=== PATIENT | male | born 1980 | race African-American/Black ===

== ENCOUNTER 2017-01-29 04:12 | Emergency (ER) | payer MEDICAID ==
[~2017-01-29] VITALS: Ht 175.3 cm; Wt 77.0 kg
[~2017-01-29 04:12] MED LIST: PHEN100C4 PO
[2017-01-29 06:00] VITALS: BP 118/70
== END 2017-01-29 06:00 | disposition home or self-care (01) ==
LOC: ER 04:15
DX: R56.9 Unspecified convulsions (principal); Z79.899 Other long term (current) drug therapy
CPT/HCPCS: 36415; 80185; 99284; Z7610

== ENCOUNTER 2017-05-18 13:42 | Emergency (ER) | payer MEDICAID ==
[~2017-05-18] VITALS: Ht 170.2 cm; Wt 70.0 kg
[2017-05-18] MEDS ORDERED: BACITRACIN ZINC OINT UDPKT TOP ONE (14:45)
[2017-05-18 14:59] LABS: BASOPHILS % 0.9 % (0.0-2.0); EOSINOPHILS % 3.8 % (0.0-5.0); HEMATOCRIT. 41.9 % (42.0-52.0); HEMOGLOBIN. 13.4 g/dL (14.0-18.0); LYMPHOCYTES % 29.5 % (20.0-50.0); MEAN CORPUSCULAR HEMOGLOBIN 26.8 pg (28.0-32.0); MEAN CORPUSCULAR VOLUME 83.6 fL (80.0-94.0); MEAN PLATELET VOLUME 7.3 fl (7.4-10.4); MONOCYTES % 9.9 % (2.0-8.0); NEUTROPHILS % 55.9 % (40.0-76.0); PLATELET 294 x1000/uL (130-400); RED BLOOD CELL COUNT 5.01 mill/uL (4.7-6.1); RED CELL DISTRIBUTION WIDTH 15.3 % (11.6-14.6)
[2017-05-18 15:15] LABS: CARBON DIOXIDE 25 mEq/L (21-32); CHLORIDE 107 mEq/L (98-107)
[2017-05-18 16:04] VITALS: BP 144/78
== END 2017-05-18 16:05 | disposition left against medical advice (07) ==
LOC: ER 14:21
DX: G40.909 Epilepsy, unspecified, not intractable, without status epilepticus (principal); S01.512A Laceration without foreign body of oral cavity, initial encounter; S80.211A Abrasion, right knee, initial encounter; S60.512A Abrasion of left hand, initial encounter; R79.89 Other specified abnormal findings of blood chemistry; R03.0 Elevated blood-pressure reading, without diagnosis of hypertension; W01.0XXA Fall on same level from slipping, tripping and stumbling without subsequent striking against object, initial encounter; Y93.89 Activity, other specified; Y92.89 Other specified places as the place of occurrence of the external cause
CPT/HCPCS: 36415; 80053; 80185; 85025; 99284; Z7610

== ENCOUNTER 2017-05-20 22:50 | Emergency (ER) | payer MEDICAID ==
[~2017-05-20] VITALS: Ht 172.7 cm; Wt 60.0 kg
[2017-05-21 00:54] VITALS: BP 117/69
== END 2017-05-21 02:45 | disposition left against medical advice (07) ==
LOC: ER 22:50
DX: R42 Dizziness and giddiness (principal); Z53.21 Procedure and treatment not carried out due to patient leaving prior to being seen by health care provider

== ENCOUNTER 2019-03-13 22:54 | Emergency (ER) | payer MEDICAID | END 2019-03-14 | disposition left against medical advice (07) | LOC: ER 22:54 | DX: Z53.21 Procedure and treatment not carried out due to patient leaving prior to being seen by health care provider (principal) ==

== ENCOUNTER 2024-04-03 19:53 | Emergency (ER) | payer MEDICAID, OTHER ==
[~2024-04-03] VITALS: Ht 172.7 cm; Wt 73.0 kg
[~2024-04-03 19:53] MED LIST changes: +ASPI-1160 PO; +KEPP500 MT
[2024-04-03 19:58] VITALS: TEMP 98.2; O2SAT 98
[2024-04-03] MEDS ORDERED: NAPR-1176 MT (23:05)
[2024-04-03] MEDS ORDERED: LIDO700A15 TP (23:05)
[2024-04-03] MEDS: KETOROLAC 15MG/ML VIAL IM ONE (23:18)
[2024-04-03 23:24] VITALS: BP 120/72; PULSE 90; RESP 16
[2024-04-03] MEDS: KETOROLAC 15MG/ML VIAL IM NR (23:24)
== END 2024-04-03 23:35 | disposition home or self-care (01) ==
LOC: ER 20:03
DX: G89.29 Other chronic pain (principal); M54.9 Dorsalgia, unspecified; F12.10 Cannabis abuse, uncomplicated; Z79.899 Other long term (current) drug therapy
CPT/HCPCS: 99283; 72100; 96372; J1885

== ENCOUNTER 2024-04-09 14:54 | Emergency (ER) | payer MEDICAID ==
[~2024-04-09] VITALS: Ht 175.3 cm; Wt 70.0 kg
[~2024-04-09 14:54] MED LIST changes: +LIDO700A15 TP; +NAPR-1176 MT
[2024-04-09 14:56] VITALS: BP 152/90; PULSE 105; RESP 16; TEMP 98.7; O2SAT 100
[2024-04-09 15:52] LABS: BASOPHILS % 0.2 % (0.0-2.0); EOSINOPHILS % 1.9 % (0.0-5.0); HEMATOCRIT. 37.9 % (42.0-52.0); HEMOGLOBIN. 12.6 g/dL (14.0-18.0); MEAN CORPUSCULAR HEMOGLOBIN 27.7 pg (28.0-32.0); MEAN CORPUSCULAR HGB CONC 33.4 g/dL (31.0-37.0); MEAN CORPUSCULAR VOLUME 82.9 fL (80.0-94.0); MEAN PLATELET VOLUME 6.4 fl (7.4-10.4); MONOCYTES % 8.4 % (2.0-8.0); NEUTROPHILS % 74.5 % (40.0-76.0); PLATELET 380 x1000/uL (130-400); RED BLOOD CELL COUNT 4.57 mill/uL (4.7-6.1)
[2024-04-09 15:56] LABS: CHLORIDE 109 mEq/L (98-107); POTASSIUM 4.2 mEq/L (3.5-5.1); SODIUM 140 mEq/L (136-145)
[2024-04-09 15:57] LABS: CALCIUM 8.9 mg/dL (8.7-10.4); CARBON DIOXIDE 26 mEq/L (21-32)
[2024-04-09 16:02] LABS: CREATININE 0.9 mg/dL (0.6-1.3); GLUCOSE 106 mg/dL (70-105); UREA NITROGEN BLOOD 11 mg/dL (9-23)
[2024-04-09 16:03] LABS: PHENYTOIN 7.9 ug/mL (10-20)
[2024-04-09 16:11] LABS: ETHANOL BLOOD < 10 mg/dL (<10)
[2024-04-09] MEDS: PHENYTOIN SODIUM EXTENDED 100MG CAPSULE PO ONE (16:14)
[2024-04-09] MEDS ORDERED: PHENYTOIN SODIUM EXTENDED 100MG CAPSULE PO ONE ×2 (17:15→19:00)
[2024-04-09] MEDS ORDERED: LEVETIRACETAM 500MG TABLET PO ONE (19:45)
[2024-04-09] MEDS ORDERED: KEPP500 MT (19:49)
[2024-04-09] MEDS ORDERED: PHEN100C4 MT (19:49)
== END 2024-04-09 21:01 | disposition home or self-care (01) ==
LOC: ER 14:54
DX: R56.9 Unspecified convulsions (principal); J45.909 Unspecified asthma, uncomplicated; F12.10 Cannabis abuse, uncomplicated; Z79.899 Other long term (current) drug therapy
CPT/HCPCS: 36415; 80048; 80185; 80320; 85025; 93005; 99284; G0480

== ENCOUNTER 2024-04-09 22:12 | Emergency (ER) | payer MEDICAID ==
[~2024-04-09] VITALS: Ht 185.4 cm; Wt 90.0 kg
[~2024-04-09 22:12] MED LIST changes: +PHEN100C4 MT
[2024-04-09 22:20] VITALS: O2SAT 100
[2024-04-09] MEDS: LEVETIRACETAM 1000MG PREMIX 100 ML IV ONE (22:56)
[2024-04-09 23:04] VITALS: BP 115/75; PULSE 76; RESP 16; TEMP 98.5
[2024-04-09 23:38] LABS: BASOPHILS % 0.4 % (0.0-2.0); HEMOGLOBIN. 13.7 g/dL (14.0-18.0); LYMPHOCYTES % 19.9 % (20.0-50.0); MEAN CORPUSCULAR HEMOGLOBIN 27.3 pg (28.0-32.0); MEAN CORPUSCULAR HGB CONC 32.6 g/dL (31.0-37.0); MEAN CORPUSCULAR VOLUME 83.6 fL (80.0-94.0); MEAN PLATELET VOLUME 6.7 fl (7.4-10.4); MONOCYTES % 11.6 % (2.0-8.0); NEUTROPHILS % 66.1 % (40.0-76.0); PLATELET 372 x1000/uL (130-400); RED BLOOD CELL COUNT 5.02 mill/uL (4.7-6.1); RED CELL DISTRIBUTION WIDTH 15.3 % (11.6-14.6); WHITE BLOOD COUNT 5.7 x1000/uL (4.5-11.0)
[2024-04-09 23:44] LABS: CHLORIDE 110 mEq/L (98-107); POTASSIUM 4.3 mEq/L (3.5-5.1); SODIUM 139 mEq/L (136-145)
[2024-04-09 23:45] LABS: CARBON DIOXIDE 23 mEq/L (21-32)
[2024-04-09 23:46] LABS: CALCIUM 9.1 mg/dL (8.7-10.4)
[2024-04-09 23:50] LABS: CREATININE 0.9 mg/dL (0.6-1.3); GLUCOSE 88 mg/dL (70-105); UREA NITROGEN BLOOD 7 mg/dL (9-23)
== END 2024-04-10 01:20 | disposition home or self-care (01) ==
LOC: ER 22:12
DX: R56.9 Unspecified convulsions (principal); J45.909 Unspecified asthma, uncomplicated; F12.10 Cannabis abuse, uncomplicated; Z79.899 Other long term (current) drug therapy
CPT/HCPCS: 80048; 85025; 36415; 96365; 99284; J1953; Z7610

== ENCOUNTER 2024-04-10 05:32 | Emergency (ER) | payer MEDICAID ==
[~2024-04-10] VITALS: Ht 172.7 cm; Wt 72.0 kg
[2024-04-10 05:47] VITALS: BP 132/89; PULSE 63; RESP 12; TEMP 98.3; O2SAT 98
[2024-04-10] MEDS: LEVETIRACETAM 500MG TABLET PO ONE (07:17)
[2024-04-10] MEDS: PHENYTOIN SODIUM EXTENDED 100MG CAPSULE PO ONE (07:17)
== END 2024-04-10 07:29 | disposition home or self-care (01) ==
LOC: ER 06:20
DX: R56.9 Unspecified convulsions (principal); J45.909 Unspecified asthma, uncomplicated; F12.90 Cannabis use, unspecified, uncomplicated; Z98.890 Other specified postprocedural states
CPT/HCPCS: 99283

== ENCOUNTER 2025-08-23 12:33 | Emergency (ER) | payer MEDICAID ==
[~2025-08-23] VITALS: Ht 170.2 cm; Wt 70.0 kg
[~2025-08-23 12:33] MED LIST changes: +LIDO-53 TP; -LIDO700A15 TP
[2025-08-23 12:47] VITALS: O2SAT 99
[2025-08-23 15:26] VITALS: BP 135/92; PULSE 69; RESP 18; TEMP 36.6; O2SAT 98
[2025-08-23] MEDS: ACETAMINOPHEN 500MG TABLET PO ONE (16:48)
[2025-08-23] MEDS: IBUPROFEN 600MG TABLET PO ONE (16:48)
[2025-08-23] MEDS ORDERED: IBUP-2028 MT (17:44)
== END 2025-08-23 18:22 | disposition home or self-care (01) ==
LOC: ER 12:33
DX: S82.831A Other fracture of upper and lower end of right fibula, initial encounter for closed fracture (principal); S82.301A Unspecified fracture of lower end of right tibia, initial encounter for closed fracture; J45.909 Unspecified asthma, uncomplicated; Z79.899 Other long term (current) drug therapy; Z98.890 Other specified postprocedural states; F12.90 Cannabis use, unspecified, uncomplicated; V18.4XXA Pedal cycle driver injured in noncollision transport accident in traffic accident, initial encounter; Y93.55 Activity, bike riding; Y92.89 Other specified places as the place of occurrence of the external cause; Y99.8 Other external cause status
CPT/HCPCS: 73610; 73630; 29515; 99284; Z7610